=== PATIENT | male | born 1970 | race Caucasian/White ===

== ENCOUNTER 2017-04-09 21:38 | Emergency (ER) | payer SELFPAY | END 2017-04-10 02:07 | disposition home or self-care (01) | LOC: E/R 04-10 02:07 | DX: F10.929 Alcohol use, unspecified with intoxication, unspecified (principal); R40.2252 Coma scale, best verbal response, oriented, at arrival to emergency department; S09.90XA Unspecified injury of head, initial encounter; S01.81XA Laceration without foreign body of other part of head, initial encounter; R40.2142 Coma scale, eyes open, spontaneous, at arrival to emergency department; R40.2362 Coma scale, best motor response, obeys commands, at arrival to emergency department; W18.09XA Striking against other object with subsequent fall, initial encounter; Y92.9 Unspecified place or not applicable; Z87.891 Personal history of nicotine dependence | CPT/HCPCS: 70450; 72125; 99285-25 ==